=== PATIENT | male | born 1980 | race Caucasian/White ===

== ENCOUNTER 2020-01-18 16:48 | Emergency (ER) | payer OTHER, SELFPAY ==
--- NOTE | 2020-01-18 17:08 | ED_ITS ---
HPI - Alcohol General Chief Complaint: General Medical Stated Complaint: etoh Time Seen by Provider: 01/18/20 18:03 Source: patient and EMS Mode of arrival: EMS Limitations: no limitations History of Present Illness HPI narrative: 39-year-old male with past medical history of hepatitis-C, HIV, on Suboxone, alcohol abuse presents via EMS after being found at a [employer] bathroom passed out. States that he is withdrawing from Suboxone and has had multiple shots of whiskey. He is not suicidal or homicidal but he is asking for some help to get sober. He denies any physical complaints at this time. MD complaint: alcohol intoxication and desires rehab Last drink: Hours (ago) Chronic alcohol use: Yes Previous visits for alcohol intoxication: Yes Recent trauma: No Related Data Allergies Allergy/AdvReac Type Severity Reaction Status Date / Time No Known Allergies Allergy Unverified 11/06/19 19:36 [No Known Allergies*] Review of Systems Review of Systems: Constitutional: No Fever, No Chills ENT/Mouth: No sore throat, No Rhinorrhea Eyes: No Eye Pain, No Swelling, No Redness Cardiovascular: No Chest Pain, No SOB Respiratory: No Cough, No Sputum Gastrointestinal: No Nausea, No Vomiting, No Diarrhea, No abdominal Pain Genitourinary: No Dysuria, No Hematuria Musculoskeletal: No joint pain, No Myalgias, No Joint Swelling Skin: No Skin Lesions, No rash Neuro: No Weakness, No Numbness, No Loss of Consciousness, No Dizziness, No Headache Psych: No Anxiety, No Depression, No SI/HI/AH/VH Heme/Lymph: No Bruising, No Bleeding,No Lymphadenopathy Endocrine: No Polyuria, No Polydipsia Yes all other systems are reviewed and are negative PMFSH Past Medical History Source: old records reviewed Medical History (Updated 01/18/20 @ 17:12 by Cayla Perez NP) Pancreatitis Spontaneous tension pneumothorax Social History Social History Advance Directives: No Advance Directives Information Provided: Yes Physical Exam Vital Signs: Vital Signs: Last Vital Signs Temp 98.2 F 01/18/20 17:19 Pulse 82 01/18/20 17:19 Resp 18 01/18/20 17:19 BP 104/69 01/18/20 17:19 Pulse Ox 99 01/18/20 17:19 Body Mass Index 20.9 Appearance: Alert. Oriented X3. No acute distress. Eyes: Pupils equal, round and reactive to light. ENT: Pharynx normal. Neck: Normal inspection. Neck supple. CVS: Normal heart rate and rhythm. Pulses normal. Respiratory: No respiratory distress. Breath sounds normal. Abdomen: Soft and nontender. Skin: Skin warm and dry. Normal skin color. Normal skin turgor. Extremities: No lower extremity edema. Neuro: No motor deficit. No sensory deficit. Course Course Course Narrative: 39-year-old male with past medical history of hepatitis-C, HIV, substance abuse currently on Suboxone, alcohol abuse presents for acute alcohol intoxication and Suboxone withdrawal. He was found in his [employer] [place] [employer] bathroom passed out and brought to the emergency department via EMS. Currently asking for information for detox. He is not suicidal or homicidal, and review of past medical history shows that he has been here multiple times for similar concerns. Last visit was in 2019. 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 middle school football coach discussed plan with patient. [facility] Patient agrees with this plan. Patient decided that he would like to leave and go to detox in the morning on his own regard. Patient will be discharged home, he will call at [facility] in the morning. MDM - Alcohol MDM Narrative Medical decision making narrative: Substance abuse Differential Diagnosis Differential diagnosis: Likely alcohol dependence and alcohol intoxication Medical Records Attestation: I reviewed the patient's medical records. Lab Data Attestation: I reviewed the patient's lab results. Discharge Plan Discharge Clinical Impression: Alcohol abuse Patient Disposition: Home, Self-Care Instructions: Abuse of Alcohol (ED), Polysubstance Abuse (ED) Additional Instructions: please follow-up with [facility]> Thank you for choosing this emergency department for evaluation. Please follow-up with primary care physician as needed. Return to the emergency department for any new, concerning, or worsening symptoms. Interventions: ED Discharge Assessment Last Done: 01/18/20 19:25 Discharge Date/Time: 01/18/20 19:26
[2020-01-18 17:19] VITALS: BP 104/69; PULSE 82; RESP 18; TEMP 36.8; O2SAT 99; BMI 20.9
== END 2020-01-18 19:26 | disposition home or self-care (01) ==
PROVIDERS: Emergency Provider Emergency Medicine
DX: F10.10 Alcohol abuse, uncomplicated (principal); Z21 Asymptomatic human immunodeficiency virus [HIV] infection status; Z71.41 Alcohol abuse counseling and surveillance of alcoholic
CPT/HCPCS: 99283

== ENCOUNTER 2020-06-14 20:36 | Inpatient (IN) | payer MEDICAID, SELFPAY ==
--- NOTE | ~2020-06-14 | XR_ITS ---
EXAMINATION: XR CHEST CLINICAL INFORMATION: Fever COMPARISON: Chest radiograph 08/06/2018 TECHNIQUE: Frontal view of the chest was obtained in the supine position. The costophrenic angles are not included on the radiograph. FINDINGS: Some mild peribronchial thickening is present. No focal consolidations are seen. No other significant abnormality is noted involving the heart, lungs, mediastinum, bony thorax or soft tissues. XR/XR chest 1V IMPRESSION: Mild peribronchial thickening
--- NOTE | ~2020-06-14 | XR_ITS ---
EXAMINATION: XR ANKLE, RIGHT CLINICAL INFORMATION: Deep wound status post amputation COMPARISON: None TECHNIQUE: AP, lateral, and mortise views amputated distal stump. FINDINGS: Patient status post amputation of the foot. There is mild deformity distal ends of the tibia and fibula. Dystrophic calcifications are noted in the soft tissues. In the medial tibial corner, the cortex is not well seen and bony destruction secondary to osteomyelitis cannot be entirely excluded. XR/XR ankle RT 2V IMPRESSION: Question of osteomyelitis as described above. MRI may be helpful for further evaluation.
[2020-06-14 20:44] VITALS: BP 131/68; PULSE 80; RESP 18; TEMP 36.9; O2SAT 98; BMI 20.3
--- NOTE | 2020-06-14 21:03 | ED_ITS ---
HPI - Abdominal Pain General Chief Complaint: Abdominal Pain Stated Complaint: Nausea/Vomiting Time Seen by Provider: 06/14/20 20:56 Source: patient Mode of arrival: EMS Limitations: no limitations History of Present Illness HPI narrative: Patient's history of HIV hepatitis-C substance abuse heroin and cocaine and alcohol with history of alcohol syndrome with right leg till ankle since has a nonhealing ulcer at the stump with redness spreading to his lower [place] area for last few days was seen at [facility] 1 week ago and told him that he has infection but patient did want to get admitted . patient been vomiting for last 24 hours with diffuse abdominal pain no fever but feels chilly Related Data Allergies Allergy/AdvReac Type Severity Reaction Status Date / Time No Known Allergies Allergy Unverified 11/06/19 19:36 [No Known Allergies*] Review of Systems Review of Systems Constitutional : No Weight loss, No Fever, + Chills ENT/Mouth : No sore throat, No Rhinorrhea Eyes: No Eye Pain, No Swelling Cardiovascular : No Chest Pain, no palpitations Respiratory : No Cough, No Sputum, no shortness of breath Gastrointestinal : no Nausea, + Vomiting, No Diarrhea, No abdominal Pain, no black stools Genitourinary : No Dysuria, No Urinary Frequency Musculoskeletal : No joint pain, No Myalgias, No Joint Swelling Skin : No Skin Lesions, No rash Neuro : No Weakness, No Numbness, No Dizziness, No Headache Psych : No Anxiety/Panic, No Depression Heme/Lymph: No Bruising, No Lymphadenopathy Endocrine : No Polyuria, No Polydipsia All other systems reviewed and are negative Physical Exam Vital Signs: Vital Signs: Last Vital Signs Temp 98.2 F 06/14/20 23:46 Pulse 93 06/14/20 23:46 Resp 14 06/14/20 23:46 BP 101/85 06/14/20 23:46 Pulse Ox 95 06/14/20 23:46 Body Mass Index 20.3 Appearance: Alert. Oriented X3. In moderate distress. Vomiting actively Eyes: PERRLA, No Nystagmus ENT: Pharynx normal. Oral Mucosa moist Neck: Normal inspection. Neck supple. CVS: Normal heart rate and rhythm. Pulses normal. Respiratory: No respiratory distress. Equal air entry bilateral, no wheezing/rales/rhonchi Abdomen: Soft diffuse tenderness specially on epigastric area no rebound tenderness or guarding. Bowel sounds are present, no mass palpable, no CVA tenderness Skin: Skin warm and dry. Normal skin color. Normal skin turgor. Extremities: No lower extremity edema. No calf tenderness right lower extremity amputated at the ankle stump with 3 cm round nonhealing ulcer with granulation tissue at the base without significant 1st discharge, erythema all the way to the mid [place] on the right leg no subcutaneous crepitus normal sensation, left hand with loss of fingers Neuro: Oriented X 3. No motor deficit. No sensory deficit.No cerebellar signs , cranial nerves II-XII intact MDM - Abdominal Pain MDM Narrative Medical decision making narrative: Patient's substance abuse alcohol abuse came with chills and nonhealing ulcer of right stump x-ray showed slight erosion of the bone possible osteomyelitis with high risk of infection because of HIV and substance abuse will admit patient for IV antibiotic vancomycin and Zosyn pain is likely from withdrawal if patient felt better after IV Ativan Pepcid and Zofran Lab Data Attestation: I reviewed the patient's lab results. Result diagrams: 06/14/20 21:39 06/14/20 21:39 Labs: Lab Results 06/14/20 06/14/20 06/14/20 Range/Units 21:39 21:39 21:39 WBC 10.7 (4.8-10.8) X10*3/uL RBC 4.71 (4.60-5.80) X10*6/uL Hgb 14.6 (14.0-18.0) g/dl Hct 43.9 (42-52) % MCV 93.2 (80-98) fL MCH 31.0 (27.0-33.0) pg MCHC 33.3 (31.0-36.0) g/dl RDW 14.3 (11.0-16.0) % Plt Count 324 (160-400) X10*3/uL MPV 8.8 L (9.4-12.4) fL Immature Gran % (Auto) 0.9 H (0.0-0.4) % Neut % (Auto) 82.0 H (45-73) % Lymph % (Auto) 10.2 L (20-40) % [place] % (Auto) 6.3 (2-11) % Eos % (Auto) 0.3 (0-4) % Baso % (Auto) 0.3 (0-2) % Lymph # (Auto) 1.1 L (1.2-4.9) X10*3/uL [place] # (Auto) 0.7 (0.1-1.2) X10*3/uL Eos # (Auto) 0.0 (0.0-0.4) X10*3/uL Baso # (Auto) 0.0 (0.0-0.2) X10*3/uL Abs Immat Gran (auto) 0.10 H (0.00-0.03) X10*3/uL Absolute Neuts (auto) 8.8 H (2.0-8.3) X10*3/uL Absolute Nucleated RBC 0.000 (0.0-0.012) X10*3/uL Nucleated RBC % (auto) 0.0 (0.0-0.2) /100WBC PT 12.6 (10.8-13.0) SEC INR 1.1 (0.9-1.1) APTT 35.1 (24.1-38.0) SEC Sodium 137 (135-145) mmol/L Potassium 3.9 (3.3-5.1) mmol/L Chloride 92 L (96-108) mmol/L Carbon Dioxide 34 H (22-29) mmol/L Anion Gap 15 (12-20) BUN 4 L (9-16) mg/dL Creatinine 0.66 (0.5-1.4) mg/dL Estim Creat Clear Calc 144.6 Estimated GFR > 60 Random Glucose 111 (60-115) mg/dL Lactic Acid (0.5-2.0) mmol/L Calcium 9.7 (8.4-10.2) mg/dL Total Bilirubin 0.7 (0.0-1.0) mg/dL Direct Bilirubin 0.4 (0.0-0.5) mg/dL AST 29 (5-37) U/L ALT 16 (0-40) U/L Alkaline Phosphatase 123 H (39-117) U/L Total Protein 8.6 H (6.5-8.0) g/dL Albumin 3.5 (3.5-5.0) g/dL Lipase 9 (8-78) U/L Ethyl Alcohol mg/dL COVID-19 (PING) (Negative) COVID-19 Clin Com 06/14/20 06/14/20 06/14/20 Range/Units 21:39 21:49 21:49 WBC (4.8-10.8) X10*3/uL RBC (4.60-5.80) X10*6/uL Hgb (14.0-18.0) g/dl Hct (42-52) % MCV (80-98) fL MCH (27.0-33.0) pg MCHC (31.0-36.0) g/dl RDW (11.0-16.0) % Plt Count (160-400) X10*3/uL MPV (9.4-12.4) fL Immature Gran % (Auto) (0.0-0.4) % Neut % (Auto) (45-73) % Lymph % (Auto) (20-40) % [place] % (Auto) (2-11) % Eos % (Auto) (0-4) % Baso % (Auto) (0-2) % Lymph # (Auto) (1.2-4.9) X10*3/uL [place] # (Auto) (0.1-1.2) X10*3/uL Eos # (Auto) (0.0-0.4) X10*3/uL Baso # (Auto) (0.0-0.2) X10*3/uL Abs Immat Gran (auto) (0.00-0.03) X10*3/uL Absolute Neuts (auto) (2.0-8.3) X10*3/uL Absolute Nucleated RBC (0.0-0.012) X10*3/uL Nucleated RBC % (auto) (0.0-0.2) /100WBC PT (10.8-13.0) SEC INR (0.9-1.1) APTT (24.1-38.0) SEC Sodium (135-145) mmol/L Potassium (3.3-5.1) mmol/L Chloride (96-108) mmol/L Carbon Dioxide (22-29) mmol/L Anion Gap (12-20) BUN (9-16) mg/dL Creatinine (0.5-1.4) mg/dL Estim Creat Clear Calc Estimated GFR Random Glucose (60-115) mg/dL Lactic Acid 1.0 (0.5-2.0) mmol/L Calcium (8.4-10.2) mg/dL Total Bilirubin (0.0-1.0) mg/dL Direct Bilirubin (0.0-0.5) mg/dL AST (5-37) U/L ALT (0-40) U/L Alkaline Phosphatase (39-117) U/L Total Protein (6.5-8.0) g/dL Albumin (3.5-5.0) g/dL Lipase (8-78) U/L Ethyl Alcohol < 10 mg/dL COVID-19 (PING) Negative (Negative) COVID-19 Clin Com See Note Imaging Data X-ray Right ankle: Radiologist's impression: Ordering Physician: Nasim Piña MD Date of Service: 06/14/20 Procedure(s): XR ankle RT 2V Accession Number(s): [id number] cc: Nasim Piña MD~ EXAMINATION: XR ANKLE, RIGHT CLINICAL INFORMATION: Deep wound status post amputation COMPARISON: None TECHNIQUE: AP, lateral, and mortise views amputated distal stump. FINDINGS: Patient status post amputation of the foot. There is mild deformity distal ends of the tibia and fibula. Dystrophic calcifications are noted in the soft tissues. In the medial tibial corner, the cortex is not well seen and bony destruction secondary to osteomyelitis cannot be entirely excluded. XR/XR ankle RT 2V IMPRESSION: Question of osteomyelitis as described above. MRI may be helpful for further evaluation. Discharge Plan Discharge Clinical Impression: Osteomyelitis of ankle, right, acute, Substance abuse Patient Disposition: [facility] Past Medical History Medical History Amputation of right foot Pancreatitis Spontaneous tension pneumothorax Social History Social History Alcohol intake: current Alcohol type: hard liquor Smoking Status: Current every day smoker Use of substances other than those prescribed or required for medical reasons: Yes Substance Use Type: Heroin Substance Use Frequency: Chronic Longstanding Last Used Substance: Hours (ago) Advance Directives: No
[2020-06-14] MEDS: 0.9 % Sodium Chloride 1,000 ML 999 ML IVCONT (21:41)
[2020-06-14] MEDS: Famotidine/PF 20 MG/2 ML VIAL IVPUSH (21:41)
[2020-06-14] MEDS: ondansetron HCL 4 MG/2 ML VIAL IVPUSH (21:41)
[2020-06-14 21:46] LABS: MANUAL DIFF FLAG NO
[2020-06-14 21:47] LABS: Basophils Percent Auto 0.3 % (0-2); Eosinophils Percent Auto 0.3 % (0-4); Hematocrit 43.9 % (42-52); Hemoglobin 14.6 g/dl (14.0-18.0); Imm Gran Pct Auto 0.9 % (0.0-0.4); Lymphocytes Absolute Auto 1.1 X10*3/uL (1.2-4.9); Lymphocytes Percent Auto 10.2 % (20-40); Mean Corpuscular HGB Conc 33.3 g/dl (31.0-36.0); Mean Corpuscular Volume 93.2 fL (80-98); Mean Platelet Volume 8.8 fL (9.4-12.4); Monocytes Absolute Auto 0.7 X10*3/uL (0.1-1.2); Monocytes Percent Auto 6.3 % (2-11); Neutrophils Absolute Auto 8.8 X10*3/uL (2.0-8.3); Platelet Count 324 X10*3/uL (160-400); Red Blood Count 4.71 X10*6/uL (4.60-5.80); Red Cell Distribution Width 14.3 % (11.0-16.0); White Blood Count 10.7 X10*3/uL (4.8-10.8)
[2020-06-14] MEDS: Piperacillin Sodium/Tazobactam 3.375 GM in 0.9 % Sodium Chloride 50 ML IV (21:50)
[2020-06-14 21:53] LABS: INTERNATIONAL NORM RATIO 1.1 (0.9-1.1); Prothrombin Time 12.6 SEC (10.8-13.0)
[2020-06-14 21:55] LABS: Partial Thromboplastin Time 35.1 SEC (24.1-38.0)
[2020-06-14 22:09] LABS: Alanine Aminotransferase 16 U/L (0-40); Albumin Level 3.5 g/dL (3.5-5.0); Alkaline Phosphatase 123 U/L (39-117); Anion Gap 15 (12-20); Aspartate Amino Transferase 29 U/L (5-37); Bilirubin Direct 0.4 mg/dL (0.0-0.5); Bilirubin Total 0.7 mg/dL (0.0-1.0); Blood Urea Nitrogen 4 mg/dL (9-16); Calcium 9.7 mg/dL (8.4-10.2); Carbon Dioxide 34 mmol/L (22-29); Chloride 92 mmol/L (96-108); Creatinine Clr Calc Pharmacy 144.6; Estimated Glomerular Filt Rate > 60; Glucose Random 111 mg/dL (60-115); Lipase 9 U/L (8-78); Potassium 3.9 mmol/L (3.3-5.1); Sodium 137 mmol/L (135-145); Total Protein 8.6 g/dL (6.5-8.0)
[2020-06-14 22:13] LABS: COVID-19 Test Negative (Negative); IDNOW Serial# 9DD0AD1C
[2020-06-14 22:23] LABS: Ethanol < 10 mg/dL
--- NOTE | 2020-06-14 22:32 | PC.NURSE ---
PT BIBA, C/O DIFFUSE ABD PAIN W/ N/V SINCE THIS AM. ABD TENDER TO PALPATION ALL OVER, ACTIVELY VOMITING MULTIPLE TIMES UPON ARRIVAL. VSS. PT STS RECENTLY AT [facility] X1 WEEK AGO, STS DX W/ INFECTION IN BONE OF LEG, WAS TO BE ADMITTED TO HOSPITAL BUT LEFT AMA. PT BORN W/ NO R FOOT, HAS STUMP W/ ~1 X1 OPEN WOUND, REDNESS TO SKIN IN LE, WOUND/LEG WELL WRAPPED IN CLEAN DRY DRESSING. PT STS NORMALLY DRINKING ~20 DRINKS A DAY, LAST DRINK THIS AM D/T UNABLE TO KEEP ANYTHING TODAY. IV ESTABLISHED, LABS DRAWN, PT MEDICATED PER EMAR. PT AWARE/AGREEABLE TO PLAN OF CARE AND PENDING ADMISSION.
[2020-06-14 23:00] VITALS: BP 107/60; PULSE 83; RESP 20; TEMP 37.1; O2SAT 97
[2020-06-14] MEDS: vancomycin HCL 1,250 MG in 0.9 % Sodium Chloride 250 ML 166.67 MG IV (23:03)
[2020-06-14] MEDS: Magnesium Hydrox/Alum Hydrox 30 ML ORAL.SUSP PO (23:29)
[2020-06-14] MEDS: LORazepam 2 MG/ML VIAL 1 MG IVPUSH (23:29)
[2020-06-14 23:46] VITALS: BP 101/85; PULSE 93; RESP 14; TEMP 36.8; O2SAT 95
[2020-06-15] MEDS: 0.9 % Sodium Chloride 1,000 ML 999 ML IVCONT (00:13)
[2020-06-15 00:28] VITALS: BP 110/78; PULSE 88; RESP 14; TEMP 37; O2SAT 96
[2020-06-15] MEDS: Heparin Sodium,Porcine 5,000 UNIT/ML VIAL 5000 UNIT SUBCUT ×2 (01:34→09:18)
--- NOTE | 2020-06-15 02:24 | P.HPHOSP_ITS ---
History of Present Illness Date of Service: 06/15/20 Chief Complaint: Nausea/Vomiting Patient is a poor historian-most of the history obtained from the records and ER staff. 40-year-old male with a past medical history of HIV, hep C, alcohol abuse, anxiety, depression, polysubstance abuse including heroin, cocaine, history of alcohol syndrome-has right leg till ankle with a nonhealing ulcer on the stump presented to the hospital with a chief complaint of nausea and vomiting. Patient reported that over the past couple days he has been having nausea vomiting and abdominal discomfort. Denies any fever chills cough. Also mentioned that he has pain in his right leg and has noticed increased swelling and redness. Denies any numbness tingling. Patient mentions that he has been complaint with his home medications. Patient reported that his CD4 was checked couple months ago but does not remember how much. Reportedly patient recently went to [facility] but did not wanted to be admitted. Review of all other systems is negative except mentioned above ER course: ER team mentioned that patient right lower extremity x-ray showed findings consistent with osteomyelitis. Given antibiotics. Admitted for further management. [facility] Medical History (Updated 06/15/20 @ 16:49 by Roxanne Valdez MD) Amputation of right foot Cellulitis Open wound Pancreatitis Spontaneous tension pneumothorax Social History Alcohol intake: current Alcohol type: hard liquor Smoking Status: Current every day smoker Use of substances other than those prescribed or required for medical reasons: Yes Substance Use Type: Heroin Substance Use Frequency: Chronic Longstanding Last Used Substance: Hours (ago) Advance Directives: No Meds Allergies Allergy/AdvReac Type Severity Reaction Status Date / Time No Known Allergies Allergy Unverified 11/06/19 19:36 [No Known Allergies*] Active Medications: Current Medications Generic Name Dose Route Start Last Admin Trade Name Freq PRN Reason Stop Dose Admin Folic Acid 1 mg 06/15/20 09:00 Folic Acid 1 Mg Tablet PO 06/18/20 08:59 DAILY [facility] Heparin Sodium (Porcine) 5,000 unit 06/15/20 00:30 06/15/20 01:34 Heparin Sodium,Porcine 5,000 Unit/Ml Vial SUBCUT 5,000 unit Q8H MANUEL Administration Vancomycin HCl 1,250 mg/ 250 mls @ 166.667 mls/hr 06/14/20 23:00 06/15/20 01:35 Sodium Chloride IV Infused Q12H [facility] Infusion Piperacillin Sod/Tazobactam 50 mls @ 100 mls/hr 06/15/20 04:00 Sod 3.375 gm/ Sodium Chloride IV Q6H [facility] Lorazepam 1 mg 06/15/20 02:11 Lorazepam 1 Mg Tablet PO 06/19/20 02:10 Q4H PRN Breakthrough alcohol withdrawa Multivitamins 1 tab 06/15/20 09:00 B-Complex With Vitamin C Tablet PO DAILY [facility] Omeprazole 20 mg 06/15/20 06:30 Omeprazole 20 Mg Capsule. PO DAILY@0630 [facility] Pharmacy Consult 1 each 06/14/20 21:12 Consult Rx Vancomycin Dosing MISCELLANE DAILY PRN Consult order Pharmacy Consult 1 each 06/15/20 00:29 Consult Rx Vancomycin Dosing MISCELLANE DAILY PRN Consult order Senna 17.2 mg 06/15/20 00:28 Sennosides 8.6 Mg Tablet PO BEDTIME PRN Constipation Sodium Chloride 3 ml 06/15/20 08:00 0.9 % Sodium Chloride Flush 3 Ml Syringe IVFLUSH QSHIFT [facility] Thiamine HCl 100 mg 06/15/20 09:00 Thiamine Hcl 100 Mg Tablet PO 06/18/20 08:59 DAILY [facility] Home Medications Medication Instructions Recorded Confirmed Last Taken Type buspirone 1 tab PO BID 06/15/20 06/15/20 06/15/20 History bmukefj-yfq-bykjc-tenof alafen 1 tab PO DAILY 06/15/20 06/15/20 06/15/20 History [Genvoya] gabapentin 1 tab PO TID 06/15/20 06/15/20 06/15/20 History hydroxyzine pamoate 1 cap PO QID PRN 06/15/20 06/15/20 06/15/20 History Physical Exam Vital Signs and Narrative: Vital Signs: Last Vital Signs Temp 98.2 F 06/14/20 23:46 Pulse 93 06/14/20 23:46 Resp 14 06/14/20 23:46 BP 101/85 06/14/20 23:46 Pulse Ox 95 06/14/20 23:46 Body Mass Index 20.3 Gen: Appears be in no acute distress HEENT: NCAT, Moist mucosa. Pulmonary: Vesicular breath sounds, fair air entry CVS: Normal S1-S2 Abdomen: BS+, Soft, mildly tender diffusely, no guarding no rigidity. Extremities: Warm well perfused; right leg stump has nonhealing ulcer and vomiting erythema noted up to the proximal 3rd of the leg. Range of motion of the knee is maintained. Neuro: Alert and awake. Results Labs CBC and Chem 7: 06/14/20 21:39 06/14/20 21:39 Labs: Laboratory Results - last 24 hr 06/14/20 06/14/20 06/14/20 21:39 21:39 21:39 MCV 93.2 MCH 31.0 MCHC 33.3 RDW 14.3 Plt Count 324 MPV 8.8 L Immature Gran % (Auto) 0.9 H Neut % (Auto) 82.0 H Lymph % (Auto) 10.2 L [place] % (Auto) 6.3 Eos % (Auto) 0.3 Baso % (Auto) 0.3 Lymph # (Auto) 1.1 L [place] # (Auto) 0.7 Eos # (Auto) 0.0 Baso # (Auto) 0.0 Abs Immat Gran (auto) 0.10 H Absolute Neuts (auto) 8.8 H Absolute Nucleated RBC 0.000 Nucleated RBC % (auto) 0.0 PT 12.6 INR 1.1 APTT 35.1 Anion Gap 15 Estim Creat Clear Calc 144.6 Estimated GFR > 60 Random Glucose 111 Lactic Acid Calcium 9.7 Total Bilirubin 0.7 Direct Bilirubin 0.4 AST 29 ALT 16 Alkaline Phosphatase 123 H Total Protein 8.6 H Albumin 3.5 Lipase 9 Ethyl Alcohol COVID-19 (PING) COVID-19 Clin Com 06/14/20 06/14/20 06/14/20 21:39 21:49 21:49 MCV MCH MCHC RDW Plt Count MPV Immature Gran % (Auto) Neut % (Auto) Lymph % (Auto) [place] % (Auto) Eos % (Auto) Baso % (Auto) Lymph # (Auto) [place] # (Auto) Eos # (Auto) Baso # (Auto) Abs Immat Gran (auto) Absolute Neuts (auto) Absolute Nucleated RBC Nucleated RBC % (auto) PT INR APTT Anion Gap Estim Creat Clear Calc Estimated GFR Random Glucose Lactic Acid 1.0 Calcium Total Bilirubin Direct Bilirubin AST ALT Alkaline Phosphatase Total Protein Albumin Lipase Ethyl Alcohol < 10 COVID-19 (PING) Negative COVID-19 Clin Com See Note Imaging Radiologist's Impressions: Impressions Chest X-Ray 06/14/20 21:09 IMPRESSION: Mild peribronchial thickening Ankle X-Ray 06/14/20 21:13 IMPRESSION: Question of osteomyelitis as described above. MRI may be helpful for further evaluation. 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 Nausea/vomiting: Likely gastritis given alcohol use. Denies any blood in the vomitus. IV Pepcid b.i.d.. Lipase negative. Will also obtain CT abdomen. Right leg stump ulcer/osteomyelitis/cellulitis of the leg: Continue vanc and Zosyn. Id consult and General surgery consult for further recommendations. Alcohol abuse: Will monitor on CIWA protocol. Thiamine, folate, multivitamins. Polysubstance abuse: clay worker consult. History of HIV: Continue home medications. Patient reports he is on chronic Bactrim DVT prophylaxis: Subcu heparin Code status: Full code
[2020-06-15] MEDS: Piperacillin Sodium/Tazobactam 3.375 GM in 0.9 % Sodium Chloride 50 ML IV ×2 (04:54→10:20)
[2020-06-15] MEDS: 0.9 % Sodium Chloride 1,000 ML 100 ML IVCONT ×2 (04:55→15:35)
[2020-06-15 06:00] VITALS: BP 118/74; PULSE 82; RESP 18; O2SAT 97
[2020-06-15] MEDS: Metoclopramide HCl 10 MG/2 ML VIAL 5 MG IVPUSH (06:01)
[2020-06-15] MEDS: Acetaminophen 325 MG TABLET 650 MG PO (06:01)
[2020-06-15] MEDS: Omeprazole 20 MG CAPSULE.DR PO (06:02)
[2020-06-15] MEDS: LORazepam 1 MG TABLET PO ×2 (06:09→14:23)
[2020-06-15] MEDS: Gabapentin 600 MG TABLET PO ×3 (09:19→21:42)
[2020-06-15] MEDS: Thiamine HCL 100 MG TABLET PO (09:19)
[2020-06-15] MEDS: Folic Acid 1 MG TABLET PO (09:19)
[2020-06-15] MEDS: busPIRone HCl 10 MG TABLET PO (09:19)
[2020-06-15] MEDS: vancomycin HCL 1,250 MG in 0.9 % Sodium Chloride 250 ML 166.67 MG IV (11:00)
--- NOTE | 2020-06-15 14:06 | MHC.CM.PN ---
Attempted to meet with patient in regards to discharge planning. Nursing care currently being provided. Attempted to speak with patient's sister/HCP, Pebbles via telephone at [phone]. Left a message requesting a return telephone call. Case Management will attempt to meet again. Continue to monitor for d/c needs.
--- NOTE | 2020-06-15 14:30 | MHC.RECOVRN ---
40 year old male presented to [facility] ED on 06/14 via EMS due to diffuse abd pain w n/v since this am. 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 Pt subsequently admitted for osteomyelitis.? T/w met with pt in ED 15 after noting pt informed ED staff of recent substance use. Pt reports heroin use, IV, 2-3 bundles daily, last use 2 days ago; alcohol use, 20 nips daily, last use yesterday. Pt denies other substance use. Pt currently reports 10 pain r/t possible osteo as well as withdrawal symptoms. COWS 16. CIWA 11.? Pt interested in methadone for opiate withdrawal symptoms. Case discussed with pts RN and Lyndsey Jay APRN. Methadone 20 mg ordered.?Will continue to follow.
--- NOTE | 2020-06-15 14:32 | PM.CNGS ---
History of Present Illness Consult details Consult date: 06/15/20 Narrative: 40-year-old male with multiple medical problems including HIV and alcohol abuse, referred because of a question of osteomyelitis. 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 He came in last night because of nausea and vomiting as well as pain on the stump on the right leg. He said he has had a wound on this area for a long time now. His recent vomiting was deemed to be secondary to his ETOH intake with likely gastritis. He denied any fever at home. He says he used to wear prosthesis for the right lower leg deformity but states that he has not used this since January 2020. He says that he normally does his medical care in [place] but had moved here recently. Review of Systems Constitutional: Constitutional: Denies chills and Denies fever(s) Cardiovascular: Cardiovascular: Denies chest pain at rest Respiratory: Respiratory: Denies cough Gastrointestinal: Gastrointestinal: Reports nausea Genitourinary: Genitourinary: Reports difficulty urinating Neurologic: Denies Sensory deficit (Neuro) Psychiatric: Psychiatric: Reports anxiety and Reports depression [facility] Past Medical History Medical History (Updated 06/15/20 @ 16:49 by Roxanne Valdez MD) Amputation of right foot Cellulitis Open wound Pancreatitis Spontaneous tension pneumothorax Social History Social History Household Members: None Housing: Homeless Alcohol intake: current Alcohol type: hard liquor Smoking Status: Current every day smoker Use of substances other than those prescribed or required for medical reasons: Yes Substance Use Type: Heroin Substance Use Frequency: Daily Last Used Substance: Hours (ago) Currently Displaying Signs/Symptoms of Drug Intoxication Withdrawal: No Have you been hit, kicked, punched, or otherwise hurt by someone within the past year? If so, by whom?: No Do you feel safe in your current relationship?: No Current Relationship Is there a partner from a previous relationship who is making you feel unsafe now?: No Are you made to feel afraid or neglected: No Advance Directives: No Do you have thoughts of harming others: None Do you have a plan to hurt others: No Plan Recently lost weight without trying: No service: No Current occupational status: unemployed Meds Allergies Allergy/AdvReac Type Severity Reaction Status Date / Time No Known Allergies Allergy Unverified 11/06/19 19:36 [No Known Allergies*] Active Medications: Current Medications Generic Name Dose Route Start Last Admin Trade Name Freq PRN Reason Stop Dose Admin Bictegravir/Emtricitabine/Tenofovir 1 tab 06/15/20 11:45 06/15/20 14:16 Bictegrav/Emtricit/Tenofov Ala 1 Tab Tablet PO 1 tab DAILY [facility]EL Administration Buspirone HCl 10 mg 06/15/20 09:00 06/15/20 09:19 Buspirone Hcl 10 Mg Tablet PO 10 mg DAILY [facility] Administration Folic Acid 1 mg 06/15/20 09:00 06/15/20 09:19 Folic Acid 1 Mg Tablet PO 06/18/20 08:59 1 mg DAILY [facility] Administration Gabapentin 600 mg 06/15/20 09:00 06/15/20 14:23 Gabapentin 600 Mg Tablet PO 600 mg TID [facility]UEL Administration Heparin Sodium (Porcine) 5,000 unit 06/15/20 00:30 06/15/20 09:18 Heparin Sodium,Porcine 5,000 Unit/Ml Vial SUBCUT 5,000 unit Q8H [facility] Administration Hydroxyzine HCl 25 mg 06/15/20 04:40 Hydroxyzine Hcl 25 Mg Tablet PO Q6H PRN anxiety/restlessness Vancomycin HCl 1,250 mg/ 250 mls @ 166.667 mls/hr 06/14/20 23:00 06/15/20 12:47 Sodium Chloride IV Infused Q12H MANUEL Infusion Piperacillin Sod/Tazobactam 50 mls @ 100 mls/hr 06/15/20 04:00 06/15/20 10:50 Sod 3.375 gm/ Sodium Chloride IV Infused Q6H [facility]UEL Infusion Sodium Chloride 1,000 mls @ 100 mls/hr 06/15/20 02:30 06/15/20 04:55 Ns IVCONT 100 mls/hr .Q10H [facility] Administration Lorazepam 1 mg 06/15/20 02:11 06/15/20 14:23 Lorazepam 1 Mg Tablet PO 06/19/20 02:10 1 mg Q4H PRN Administration Breakthrough alcohol withdrawa Methadone HCl 20 mg 06/15/20 14:15 Methadone Hcl 1 Mg/0.1 Ml Oral.Conc PO DAILY [facility] Multivitamins 1 tab 06/15/20 09:00 06/15/20 09:19 B-Complex With Vitamin C Tablet PO 1 tab DAILY [facility] Administration Non-Formulary Medication 1 tab 06/15/20 09:00 Genvoya PO DAILY [facility] Omeprazole 20 mg 06/15/20 06:30 06/15/20 06:02 Omeprazole 20 Mg Capsule. PO 20 mg DAILY@0630 [facility] Administration Pharmacy Consult 1 each 06/14/20 21:12 Consult Rx Vancomycin Dosing MISCELLANE DAILY PRN Consult order Pharmacy Consult 1 each 06/15/20 00:29 Consult Rx Vancomycin Dosing MISCELLANE DAILY PRN Consult order Senna 17.2 mg 06/15/20 00:28 Sennosides 8.6 Mg Tablet PO BEDTIME PRN Constipation Sodium Chloride 3 ml 06/15/20 08:00 06/15/20 09:20 0.9 % Sodium Chloride Flush 3 Ml Syringe IVFLUSH Not Given QSHIFT [facility] Thiamine HCl 100 mg 06/15/20 09:00 06/15/20 09:19 Thiamine Hcl 100 Mg Tablet PO 06/18/20 08:59 100 mg DAILY [facility] Administration Home Medications Medication Instructions Recorded Confirmed Last Taken Type buspirone 1 tab PO BID 06/15/20 06/15/20 06/15/20 History tyrjmqf-dir-nyuyj-tenof alafen 1 tab PO DAILY 06/15/20 06/15/20 06/15/20 History [Genvoya] gabapentin 1 tab PO TID 06/15/20 06/15/20 06/15/20 History hydroxyzine pamoate 1 cap PO QID PRN 06/15/20 06/15/20 06/15/20 History Physical Exam Vital Signs: Vital Signs: Last Vital Signs Temp 98.6 F 06/15/20 00:28 Pulse 82 06/15/20 06:00 Resp 18 06/15/20 06:00 BP 118/74 06/15/20 06:00 Pulse Ox 97 06/15/20 06:00 Body Mass Index 20.3 Laboratory Results - last 24 hr 06/14/20 06/14/20 06/14/20 21:39 21:39 21:39 WBC 10.7 RBC 4.71 Hgb 14.6 Hct 43.9 MCV 93.2 MCH 31.0 MCHC 33.3 RDW 14.3 Plt Count 324 MPV 8.8 L Immature Gran % (A uto) 0.9 H Neut % (Auto) 82.0 H Lymph % (Auto) 10.2 L [place] % (Auto) 6.3 Eos % (Auto) 0.3 Baso % (Auto) 0.3 Lymph # (Auto) 1.1 L [place] # (Auto) 0.7 Eos # (Auto) 0.0 Baso # (Auto) 0.0 Abs Immat Gran (au to) 0.10 H Absolute Neuts (au to) 8.8 H Absolute Nucleated RBC 0.000 Nucleated RBC % (a uto) 0.0 PT 12.6 INR 1.1 APTT 35.1 Sodium 137 Potassium 3.9 Chloride 92 L Carbon Dioxide 34 H Anion Gap 15 BUN 4 L Creatinine 0.66 Estim Creat Clear Calc 144.6 Estimated GFR > 60 Random Glucose 111 Lactic Acid Calcium 9.7 Total Bilirubin 0.7 Direct Bilirubin 0.4 AST 29 ALT 16 Alkaline Phosphata se 123 H Total Protein 8.6 H Albumin 3.5 Lipase 9 Ethyl Alcohol COVID-19 (PING) COVID-19 CoNarrative 06/14/20 06/14/20 06/14/20 21:39 21:49 21:49 WBC RBC Hgb Hct MCV MCH MCHC RDW Plt Count MPV Immature Gran % (A uto) Neut % (Auto) Lymph % (Auto) [place] % (Auto) Eos % (Auto) Baso % (Auto) Lymph # (Auto) [place] # (Auto) Eos # (Auto) Baso # (Auto) Abs Immat Gran (au to) Absolute Neuts (au to) Absolute Nucleated RBC Nucleated RBC % (a uto) PT INR APTT Sodium Potassium Chloride Carbon Dioxide Anion Gap BUN Creatinine Estim Creat Clear Calc Estimated GFR Random Glucose Lactic Acid 1.0 Calcium Total Bilirubin Direct Bilirubin AST ALT Alkaline Phosphata se Total Protein Albumin Lipase Ethyl Alcohol < 10 COVID-19 (PING) Negative COVID-19 Clin Com See Note Const: General: comfortable and no acute distress Resp: Effort & Inspection: normal respiratory effort Cardio: Rhythm: regular rhythm GI: Palpation (GI): Soft to palpation, not firm and nontender Neuro: Sensory Exam: No Sensory deficit (Neuro) Extrem: Other: Right leg stump, congenital, near the level of the ankle; note of skin breakdown, circular in shape, at the stump, about 2.5 cm in diameter, no obvious pus, no necrotic tissue; some redness on the right lower leg usually Results Labs Result diagrams: 06/14/20 21:39 06/14/20 21:39 Labs: Abnormal lab results 06/14/20 06/14/20 Range/Units 21:39 21:39 MPV 8.8 L (9.4-12.4) fL Immature Gran % (Auto) 0.9 H (0.0-0.4) % Neut % (Auto) 82.0 H (45-73) % Lymph % (Auto) 10.2 L (20-40) % Lymph # (Auto) 1.1 L (1.2-4.9) X10*3/uL Abs Immat Gran (auto) 0.10 H (0.00-0.03) X10*3/uL Absolute Neuts (auto) 8.8 H (2.0-8.3) X10*3/uL Chloride 92 L (96-108) mmol/L Carbon Dioxide 34 H (22-29) mmol/L BUN 4 L (9-16) mg/dL Alkaline Phosphatase 123 H (39-117) U/L Total Protein 8.6 H (6.5-8.0) g/dL Short CBC 06/14/20 Range/Units 21:39 WBC 10.7 (4.8-10.8) X10*3/uL Hgb 14.6 (14.0-18.0) g/dl Hct 43.9 (42-52) % Plt Count 324 (160-400) X10*3/uL BMP 06/14/20 21:39 Sodium 137 Potassium 3.9 Chloride 92 L Carbon Dioxide 34 H BUN 4 L Creatinine 0.66 Calcium 9.7 Liver Function 06/14/20 Range/Units 21:39 Total Bilirubin 0.7 (0.0-1.0) mg/dL Direct Bilirubin 0.4 (0.0-0.5) mg/dL AST 29 (5-37) U/L ALT 16 (0-40) U/L Alkaline Phosphatase 123 H (39-117) U/L Albumin 3.5 (3.5-5.0) g/dL All other labs normal. Imaging Additional studies: X-ray of the leg reviewed Assessment and Plan (1) Open wound: Status: Acute He has an open wound on the stump of his right leg as described above. This may have been secondary to pressure from a previous prostheses. The patient is not a very good historian however. The x-ray shows nonvisualization the cortex so osteomyelitis could not be ruled out. An MRI therefore was recommended. We will await for this and decide on the plan of care for him. In the meantime, dry dressings may have be applied to the open wound. It does not appear that he requires debridement at this time. He does state that he normally does his healthcare in [place] and stated that may return there if he requires any form of long-term treatment for his medical issues.
--- NOTE | 2020-06-15 14:53 | W.PM.IDCN ---
History of Present Illness Data of Consult Service Date: 06/15/20 Requesting physician: Roxanne Valdez Primary Care Provider: Unknown Physician HPI Reason for consult: cellulitis He presents with left leg stump redness for 3 days He went to [facility] and left by report one day ago He has nausea and vomiting Review of Systems Review of Systems: Yes all other systems are reviewed and are negative PMFSH Past Medical History Medical History (Updated 06/15/20 @ 14:57 by Adilia Burnham MD) Amputation of right foot Cellulitis Open wound Pancreatitis Spontaneous tension pneumothorax Family History Family history: reviewed and not pertinent Social History Social History Alcohol intake: current Alcohol type: hard liquor Smoking Status: Current every day smoker Use of substances other than those prescribed or required for medical reasons: Yes Substance Use Type: Heroin Substance Use Frequency: Chronic Longstanding Last Used Substance: Hours (ago) Advance Directives: No Meds Allergies Allergy/AdvReac Type Severity Reaction Status Date / Time No Known Allergies Allergy Unverified 11/06/19 19:36 [No Known Allergies*] Active Medications: Current Medications Generic Name Dose Route Start Last Admin Trade Name Freq PRN Reason Stop Dose Admin Bictegravir/Emtricitabine/Tenofovir 1 tab 06/15/20 11:45 06/15/20 14:16 Bictegrav/Emtricit/Tenofov Ala 1 Tab Tablet PO 1 tab DAILY [facility] Administration Buspirone HCl 10 mg 06/15/20 09:00 06/15/20 09:19 Buspirone Hcl 10 Mg Tablet PO 10 mg DAILY [facility] Administration Folic Acid 1 mg 06/15/20 09:00 06/15/20 09:19 Folic Acid 1 Mg Tablet PO 06/18/20 08:59 1 mg DAILY [facility] Administration Gabapentin 600 mg 06/15/20 09:00 06/15/20 14:23 Gabapentin 600 Mg Tablet PO 600 mg TID MANUEL Administration Heparin Sodium (Porcine) 5,000 unit 06/15/20 00:30 06/15/20 09:18 Heparin Sodium,Porcine 5,000 Unit/Ml Vial SUBCUT 5,000 unit Q8H [facility] Administration Hydroxyzine HCl 25 mg 06/15/20 04:40 Hydroxyzine Hcl 25 Mg Tablet PO Q6H PRN anxiety/restlessness Vancomycin HCl 1,250 mg/ 250 mls @ 166.667 mls/hr 06/14/20 23:00 06/15/20 12:47 Sodium Chloride IV Infused Q12H [facility] Infusion Piperacillin Sod/Tazobactam 50 mls @ 100 mls/hr 06/15/20 04:00 06/15/20 10:50 Sod 3.375 gm/ Sodium Chloride IV Infused Q6H [facility] Infusion Sodium Chloride 1,000 mls @ 100 mls/hr 06/15/20 02:30 06/15/20 04:55 Ns IVCONT 100 mls/hr .Q10H [facility] Administration Lorazepam 1 mg 06/15/20 02:11 06/15/20 14:23 Lorazepam 1 Mg Tablet PO 06/19/20 02:10 1 mg Q4H PRN Administration Breakthrough alcohol withdrawa Methadone HCl 20 mg 06/15/20 14:15 Methadone Hcl 1 Mg/0.1 Ml Oral.Conc PO DAILY [facility] Multivitamins 1 tab 06/15/20 09:00 06/15/20 09:19 B-Complex With Vitamin C Tablet PO 1 tab DAILY [facility] Administration Non-Formulary Medication 1 tab 06/15/20 09:00 Genvoya PO DAILY [facility] Omeprazole 20 mg 06/15/20 06:30 06/15/20 06:02 Omeprazole 20 Mg Capsule. PO 20 mg DAILY@0630 [facility] Administration Pharmacy Consult 1 each 06/14/20 21:12 Consult Rx Vancomycin Dosing MISCELLANE DAILY PRN Consult order Pharmacy Consult 1 each 06/15/20 00:29 Consult Rx Vancomycin Dosing MISCELLANE DAILY PRN Consult order Senna 17.2 mg 06/15/20 00:28 Sennosides 8.6 Mg Tablet PO BEDTIME PRN Constipation Sodium Chloride 3 ml 06/15/20 08:00 06/15/20 09:20 0.9 % Sodium Chloride Flush 3 Ml Syringe IVFLUSH Not Given QSHIFT [facility] Thiamine HCl 100 mg 06/15/20 09:00 06/15/20 09:19 Thiamine Hcl 100 Mg Tablet PO 06/18/20 08:59 100 mg DAILY [facility] Administration Home Medications Medication Instructions Recorded Confirmed Last Taken Type buspirone 1 tab PO BID 06/15/20 06/15/20 06/15/20 History smramxj-cfe-egmud-tenof alafen 1 tab PO DAILY 06/15/20 06/15/20 06/15/20 History [Genvoya] gabapentin 1 tab PO TID 06/15/20 06/15/20 06/15/20 History hydroxyzine pamoate 1 cap PO QID PRN 06/15/20 06/15/20 06/15/20 History Physical Exam Vital Signs: Vital Signs: Last Vital Signs Temp 98.6 F 06/15/20 00:28 Pulse 82 06/15/20 06:00 Resp 18 06/15/20 06:00 BP 118/74 06/15/20 06:00 Pulse Ox 97 06/15/20 06:00 Body Mass Index 20.3 Const: General: cooperative Orientation/consciousness: patient oriented x3 HENMT: Head: Yes normal to inspection Mouth: Normal oral and palatal mucosa present Eyes: General: appearance normal, both eyes and all related structures Resp: Effort & Inspection: normal respiratory effort Cardio: Rate: regular rate Rhythm: regular rhythm GI: Palpation (GI): Soft to palpation and nontender Skin: Other: hot red area left stump Neuro: General: patient oriented x3 Results Labs CBC & Chem 7: 06/14/20 21:39 06/14/20 21:39 Labs: Short CBC 06/14/20 Range/Units 21:39 WBC 10.7 (4.8-10.8) X10*3/uL Hgb 14.6 (14.0-18.0) g/dl Hct 43.9 (42-52) % Plt Count 324 (160-400) X10*3/uL BMP 06/14/20 21:39 Sodium 137 Potassium 3.9 Chloride 92 L Carbon Dioxide 34 H BUN 4 L Creatinine 0.66 Calcium 9.7 Liver Function 06/14/20 Range/Units 21:39 Total Bilirubin 0.7 (0.0-1.0) mg/dL Direct Bilirubin 0.4 (0.0-0.5) mg/dL AST 29 (5-37) U/L ALT 16 (0-40) U/L Alkaline Phosphatase 123 H (39-117) U/L Albumin 3.5 (3.5-5.0) g/dL Assessment and Plan (1) Hepatitis C: Status: Acute (2) HIV (human immunodeficiency virus infection): Status: Acute (3) Cellulitis: Problem details: He has acute red cellulitis Status: Acute Clindamycin or Linezolid would give likely 3-4 days then po
[2020-06-15 16:16] VITALS: BP 113/69; PULSE 73; RESP 16; TEMP 37.2; O2SAT 98
[2020-06-15] MEDS: Clindamycin Phosphate/D5W 900 MG/50 ML PIGGYBACK 50 MG IV (16:16)
--- NOTE | 2020-06-15 16:45 | P.PNIM_ITS ---
Subjective Subjective Date of Service: 06/15/20 Interval History: Reports he had MRI and labs at [facility] last week but did not want to stay in the hospital Very tired C/o nausea Physical Exam Vital Signs: Vital Signs: Last Vital Signs Temp 99 F 06/15/20 16:16 Pulse 73 06/15/20 16:16 Resp 16 06/15/20 16:16 BP 113/69 06/15/20 16:16 Pulse Ox 98 06/15/20 16:16 Body Mass Index 20.3 Gen: tired but in no acute distress HEENT: sclera anicteric, moist mucus membranes Neck: supple Lungs: clear to auscultation bilaterally Heart: regular rate and rhythm, no murmurs Abd: soft, non-tender, non-distended Ext: R foot stump (congenital?) with quarter-sized ulcer with surrounding erythema and warmth Skin: warm/well-perfused Neuro: alert and oriented x3, no focal findings Psych: appropriate affect Objective Data Current Medications Generic Name Dose Route Start Last Admin Trade Name Alexq PRN Reason Stop Dose Admin Bictegravir/Emtricitabine/Tenofovir 1 tab 06/15/20 11:45 06/15/20 14:16 Bictegrav/Emtricit/Tenofov Ala 1 Tab Tablet PO 1 tab DAILY [facility] Administration Buspirone HCl 10 mg 06/15/20 09:00 06/15/20 09:19 Buspirone Hcl 10 Mg Tablet PO 10 mg DAILY [facility] Administration Folic Acid 1 mg 06/15/20 09:00 06/15/20 09:19 Folic Acid 1 Mg Tablet PO 06/18/20 08:59 1 mg DAILY [facility] Administration Gabapentin 600 mg 06/15/20 09:00 06/15/20 14:23 Gabapentin 600 Mg Tablet PO 600 mg TID [facility] Administration Heparin Sodium (Porcine) 5,000 unit 06/15/20 00:30 06/15/20 16:17 Heparin Sodium,Porcine 5,000 Unit/Ml Vial SUBCUT Not Given Q8H [facility] Hydroxyzine HCl 25 mg 06/15/20 04:40 Hydroxyzine Hcl 25 Mg Tablet PO Q6H PRN anxiety/restlessness Sodium Chloride 1,000 mls @ 100 mls/hr 06/15/20 02:30 06/15/20 15:35 Ns IVCONT 100 mls/hr .Q10H [facility] Administration Clindamycin Phosphate 900 mg in 50 mls @ 50 mls/hr 06/15/20 16:00 06/15/20 16:16 Cleocin IV 50 mls/hr Q8H [facility] Administration Lorazepam 1 mg 06/15/20 02:11 06/15/20 14:23 Lorazepam 1 Mg Tablet PO 06/19/20 02:10 1 mg Q4H PRN Administration Breakthrough alcohol withdrawa Methadone HCl 20 mg 06/15/20 14:15 Methadone Hcl 1 Mg/0.1 Ml Oral.Conc PO DAILY [facility] Multivitamins 1 tab 06/15/20 09:00 06/15/20 09:19 B-Complex With Vitamin C Tablet PO 1 tab DAILY [facility] Administration Non-Formulary Medication 1 tab 06/15/20 09:00 Genvoya PO DAILY [facility] Omeprazole 20 mg 06/15/20 06:30 06/15/20 06:02 Omeprazole 20 Mg Capsule. PO 20 mg DAILY@0630 [facility] Administration Pharmacy Consult 1 each 06/14/20 21:12 Consult Rx Vancomycin Dosing MISCELLANE DAILY PRN Consult order Pharmacy Consult 1 each 06/15/20 00:29 Consult Rx Vancomycin Dosing MISCELLANE DAILY PRN Consult order Senna 17.2 mg 06/15/20 00:28 Sennosides 8.6 Mg Tablet PO BEDTIME PRN Constipation Sodium Chloride 3 ml 06/15/20 08:00 06/15/20 09:20 0.9 % Sodium Chloride Flush 3 Ml Syringe IVFLUSH Not Given QSHIFT [facility] Thiamine HCl 100 mg 06/15/20 09:00 06/15/20 09:19 Thiamine Hcl 100 Mg Tablet PO 06/18/20 08:59 100 mg DAILY [facility] Administration Labs CBC & Chem 7: 06/14/20 21:39 06/14/20 21:39 Assessment and Plan (1) Cellulitis: Status: Acute Assessment and Plan: hospital d#1 40yo M with HIV on HAART, HCV, EtOH abuse, opioid abuse, alcohol syndrome with chronic R leg stump presenting with N/V and found to have R leg stump ulcer with cellulitis and concern for underlying osteomyelitis # R leg stump infection - pip/alfred + vanc d#1, ID/surg consults. will request MRI + lab results from [facility]. # N/V - suspect EtOH gastritis but CT pending. on IV H2RA # HIV - pt reports he is on Biktarvy, not Genvoya- will continue - reports he had labs last week at [facility]- will request records of CD4, viral load # EtOH abuse - [facility] protocol, thiamine, folate, multivitamins # opioid use disorder - Addiction medicine consulted, started on methadone # cocaine abuse - CARE Team consult # tobacco abuse - NRT # VTE ppx - UF
--- NOTE | 2020-06-15 17:41 | PM.EVENT ---
Event Note Date of Service: 06/15/20 Event Note: Addiction note: Patient currently medically admitted with wound on right limb, ? osteo HIV and Hepatitis C Reporting daily opioid use, seen by Recovery support RN--experiencing acute withdrawal sx (COWS 16) Pt denies any current MAT, hx of both methadone and buprenorphine Declining buprenorphine at this time Plan: -20mg methadone to treat acute opioid withdrawal sx -If necessary, can have additional 10mg this evening (to treat withdrawal sx) -Will follow up in AM for full consult evaluation -20mg QD order in place for now
--- NOTE | 2020-06-15 18:05 | PC.NURSE ---
AT 1620 JUST AFTER INITIATION OF ABX PT CO PAIN TO RUE, REQUESTED INFUSION BE PAUSED. IV INSERTION SITE SKIN [employer] INTACT, NO REDNESS/SWELLING.
[2020-06-15] MEDS: hydrOXYzine HCL 25 MG TABLET PO (19:09)
[2020-06-15] MEDS: 0.9 % Sodium Chloride Flush 3 ML SYRINGE IVFLUSH (20:38)
--- NOTE | 2020-06-15 20:38 | MHC.CM.PN ---
CM met with pt. Sister and her boyfriend present. Pt is somewhat angry. Stating that he wants his infection fixed, but doesn't want to hear about all that case management stuff. States he already knows what he needs to do. 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 Pt has poly-substance misuse disorder (cocaine, heroin and alcohol), his HIV positive and Hep C positive. Pt understands that he may have osteomyelitis and may need half-way antibiotics. Pt states he would like to get his apartment situation figured out, so he can have his treatments at home. CM explained to pt that because of his heroin misuse, he cannot have a PICC line at home for treatment. Explained that he would need to go to a facility for treatment. Pt's sister verified that this is true and he will not have a PICC line to go home. Pt started to speak with CM in an agitated manner about his addiction and not wanting to go to any rehab. States those places are all shit . States, I'm not going [place] [facility] [place] where they have people yelling all the time . States he has been through this before. Pt kicked his sister and boyfriend out of the room at this point.Pt rambling a bit. CM explained that he is in control of his decisions. Pt was able to calm down and speak with CM about his services. Pt is homeless. Pt is working with [facility] ([phone])- which provides all types of support services for those with HIV, including housing, of which he is waiting for a voucher. Pt has a PCP-Dr. Livia Joseph ([phone]) who works for [employer]. Pt feels like Dr. Joseph knows him and has been providing care for him, but wants him to have housing first, then addiction treatment and then care of his stump. Pt was seen by Lyndsey Jay, addiction services and methadone was ordered. D/C plan is pending diagnosis, treatment plan, and pt desires. Transportation pending disposition. CM to follow for d/c needs
--- NOTE | 2020-06-15 21:00 | PC.NURSE ---
PT AGAIN REFUSING IV INFUSION, STATES IT HURTS , NO INFILTRATION NOTED AT IV SITE, INFUSION PAUSED PER PT REQUEST.
[2020-06-15] MEDS: Nicotine 21 MG PATCH.TD24 TRANSDERMA (21:45)
[2020-06-15 21:47] VITALS: BP 123/72; PULSE 77; RESP 19; TEMP 36.5; O2SAT 100
[2020-06-16] MEDS: LORazepam 1 MG TABLET PO ×2 (00:29→05:37)
[2020-06-16] MEDS: Omeprazole 20 MG CAPSULE.DR PO (05:38)
[2020-06-16] MEDS: oxyCODONE HCl Immed Release 5 MG TABLET PO ×2 (05:38→10:57)
--- NOTE | 2020-06-16 05:57 | PC.NURSE ---
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 Security was called twice on two separate occasions because pt smoked cigarette in room also while wearing a nicotine patch. Nursing group supervisor yard notified.
[2020-06-16 07:10] VITALS: BP 129/81; PULSE 92; RESP 18; TEMP 36.9; O2SAT 98
[2020-06-16] MEDS: Gabapentin 600 MG TABLET PO (08:37)
[2020-06-16] MEDS: busPIRone HCl 10 MG TABLET PO (08:37)
[2020-06-16] MEDS: Thiamine HCL 100 MG TABLET PO (08:37)
[2020-06-16] MEDS: Folic Acid 1 MG TABLET PO (08:37)
[2020-06-16] MEDS: Nicotine 21 MG PATCH.TD24 TRANSDERMA (08:38)
--- NOTE | 2020-06-16 09:00 | MHC.RECOVRN ---
T/w met with pt to f/u regarding pain and withdrawal symptoms. Pt appears restless and diaphoretic. Pt states I need more than the 20 mg of methadone. Pt continued to state I don't want to go to a halfway, I just need to get my housing figured out. I just need a couple doses of antibiotics and to leave by Sunday. T/w educated patient regarding increasing methadone dose in this circumstance and informed pt MD and Lyndsey Jay APRN would be made aware of pts continued pain and withdrawal symptoms. Room has odor of cigarettes. Pt denies having cigarettes/cooky packer/smoking in room. Case discussed with Dr. Valdez who will speak with pt regarding plan. Case also discussed with Lyndsey Jay APRN. Will continue to follow.
[2020-06-16] MEDS: 0.9 % Sodium Chloride Flush 3 ML SYRINGE IVFLUSH (09:19)
[2020-06-16 10:05] LABS: MANUAL DIFF FLAG NO
--- NOTE | 2020-06-16 10:07 | PM.PNGS ---
Subjective Subjective Date of Service: 06/16/20 Interval history: Says he feels well except for pain on the leg Asking for pain meds No fever Physical Exam Vital Signs: Vital Signs: Last Vital Signs Temp 98.4 F 06/16/20 07:10 Pulse 92 06/16/20 07:10 Resp 18 06/16/20 07:10 BP 129/81 06/16/20 07:10 Pulse Ox 98 06/16/20 07:10 Body Mass Index 20.3 Const: General: comfortable and no acute distress Resp: Effort & Inspection: normal respiratory effort Cardio: Rhythm: regular rhythm Extrem: Other: Open wound, superficial, on the stump of his right leg, no pus; he has some redness on his right leg Progress Note: A&P Assessment and plan (1) Open wound: Status: Acute Assessment and Plan: He does not appear that he requires any debridement at this time. There is no known note of any necrotic tissue on the area. I explained to him that he needs to avoid putting pressure on this area to allow this to heal. He may be unable to wear any prosthesis still is completely heals. Has been seen by ID and clindamycin or linezolido has been recommended. Fall Risk Details Current Medications: Current Medications Generic Name Dose Route Start Last Admin Trade Name Freq PRN Reason Stop Dose Admin Bictegravir/Emtricitabine/Tenofovir 1 tab 06/15/20 11:45 06/16/20 08:37 Bictegrav/Emtricit/Tenofov Ala 1 Tab Tablet PO 1 tab DAILY MANUEL Administration Buspirone HCl 10 mg 06/15/20 09:00 06/16/20 08:37 Buspirone Hcl 10 Mg Tablet PO 10 mg DAILY MANUEL Administration Folic Acid 1 mg 06/15/20 09:00 06/16/20 08:37 Folic Acid 1 Mg Tablet PO 06/18/20 08:59 1 mg DAILY MANUEL Administration Gabapentin 600 mg 06/15/20 09:00 06/16/20 08:37 Gabapentin 600 Mg Tablet PO 600 mg TID MANUEL Administration Heparin Sodium (Porcine) 5,000 unit 06/15/20 00:30 06/16/20 08:38 Heparin Sodium,Porcine 5,000 Unit/Ml Vial SUBCUT Not Given Q8H MANUEL Hydroxyzine HCl 25 mg 06/15/20 04:40 06/15/20 19:09 Hydroxyzine Hcl 25 Mg Tablet PO 25 mg Q6H PRN Administration anxiety/restlessness Sodium Chloride 1,000 mls @ 100 mls/hr 06/15/20 02:30 06/15/20 21:50 Ns IVCONT Not Given .Q10H MANUEL Clindamycin Phosphate 900 mg in 50 mls @ 50 mls/hr 06/15/20 16:00 06/15/20 23:26 Cleocin IV Not Given Q8H MANUEL Lorazepam 1 mg 06/15/20 02:11 06/16/20 05:37 Lorazepam 1 Mg Tablet PO 06/19/20 02:10 1 mg Q4H PRN Administration Breakthrough alcohol withdrawa Methadone HCl 20 mg 06/15/20 14:15 06/16/20 08:38 Methadone Hcl 1 Mg/0.1 Ml Oral.Conc PO 20 mg DAILY MANUEL Administration Multivitamins 1 tab 06/15/20 09:00 06/16/20 08:37 B-Complex With Vitamin C Tablet PO 1 tab DAILY MANUEL Administration Nicotine 21 mg 06/15/20 17:00 06/16/20 08:38 Nicotine 21 Mg Patch.Td24 TRANSDERMA 21 mg DAILY MANUEL Administration Omeprazole 20 mg 06/15/20 06:30 06/16/20 05:38 Omeprazole 20 Mg Capsule. PO 20 mg DAILY@0630 MANUEL Administration Oxycodone HCl 5 mg 06/15/20 16:52 06/16/20 05:38 Oxycodone Hcl Immed Release 5 Mg Tablet PO 5 mg Q4H PRN Administration breakthrough pain Pharmacy Consult 1 each 06/14/20 21:12 Consult Rx Vancomycin Dosing MISCELLANE DAILY PRN Consult order Pharmacy Consult 1 each 06/15/20 00:29 Consult Rx Vancomycin Dosing MISCELLANE DAILY PRN Consult order Senna 17.2 mg 06/15/20 00:28 Sennosides 8.6 Mg Tablet PO BEDTIME PRN Constipation Sodium Chloride 3 ml 06/15/20 08:00 06/16/20 09:19 0.9 % Sodium Chloride Flush 3 Ml Syringe IVFLUSH 3 ml QSHIFT MANUEL Administration Thiamine HCl 100 mg 06/15/20 09:00 06/16/20 08:37 Thiamine Hcl 100 Mg Tablet PO 06/18/20 08:59 100 mg DAILY MANUEL Administration Time Spent With Patient Time: Total time spent is greater than 50% in coordination of care (as documented) at patient's floor/unit and/or counseling patient: Time with patient: 15 - 24 minutes
[2020-06-16 10:09] LABS: Basophils Percent Auto 0.4 % (0-2); Eosinophils Absolute Auto 0.1 X10*3/uL (0.0-0.4); Eosinophils Percent Auto 1.5 % (0-4); Hematocrit 44.2 % (42-52); Hemoglobin 14.5 g/dl (14.0-18.0); Imm Gran Pct Auto 1.1 % (0.0-0.4); Lymphocytes Absolute Auto 2.2 X10*3/uL (1.2-4.9); Lymphocytes Percent Auto 23.4 % (20-40); Mean Corpuscular HGB Conc 32.8 g/dl (31.0-36.0); Mean Corpuscular Hemoglobin 31.1 pg (27.0-33.0); Mean Corpuscular Volume 94.8 fL (80-98); Mean Platelet Volume 8.9 fL (9.4-12.4); Monocytes Absolute Auto 0.8 X10*3/uL (0.1-1.2); Neutrophils Absolute Auto 6.3 X10*3/uL (2.0-8.3); Neutrophils Percent Auto 65.6 % (45-73); Platelet Count 343 X10*3/uL (160-400); Red Blood Count 4.66 X10*6/uL (4.60-5.80); Red Cell Distribution Width 14.6 % (11.0-16.0); White Blood Count 9.5 X10*3/uL (4.8-10.8)
[2020-06-16 10:31] LABS: Anion Gap 14 (12-20); Blood Urea Nitrogen 5 mg/dL (9-16); C Reactive Protein 4.01 mg/dL (< or = 0.50); Calcium 9.5 mg/dL (8.4-10.2); Carbon Dioxide 28 mmol/L (22-29); Chloride 101 mmol/L (96-108); Creatinine Clr Calc Pharmacy 132.5; Estimated Glomerular Filt Rate > 60; Glucose Random 104 mg/dL (60-115); Potassium 4.1 mmol/L (3.3-5.1); Sodium 139 mmol/L (135-145)
[2020-06-16 11:03] LABS: Erythrocyte Sedimentation Rate 28 MM/HR (0-15)
[2020-06-16 11:09] LABS: Vancomycin Trough < 3.0 mcg/mL (10.0-20.0)
--- NOTE | 2020-06-16 12:02 | MHC.CM.PN ---
Patient has been medically cleared for dc to return to the community, no services.
--- NOTE | 2020-06-16 12:45 | PM.EVENT ---
Event Note Date of Service: 06/16/20 Event Note: Addiction follow up: Patient seen briefly as he was dressed and ready to leave. Discussed continuity if care, patient reporting he only wishes to go to [facility] in [place]. Declines waiting to have referral paperwork completed and sent over. Harm reduction discussion and bus pass provided to get back to [place]
--- NOTE | 2020-06-16 14:14 | P.DS_ITS ---
DS: Providers Provider Date of Service: 06/16/20 Date of admission: 06/15/20 00:28 Primary care physician: Livia Joseph MD Consults: 06/15/20 00:38 Consult to General Surgery Routine Consulting Provider: rT Townsend Reason for consultation: ankle osteomyelitis Consult to Infectious Diseases Routine Consulting Provider: Adilia Burnham Reason for consultation: hx HIOV; Ankle osteomyelitis DS: Diagnosis Discharge Diagnosis (1) Chronic osteomyelitis: Status: Acute (2) Cellulitis: Status: Acute (3) Substance abuse: Status: Acute (4) Alcohol withdrawal: Status: Acute DS: Medications Discharge Medications Home Medications: Home Medications Medication Instructions Recorded Confirmed gabapentin 1 tab PO TID 06/15/20 06/15/20 hydroxyzine pamoate 1 cap PO QID PRN 06/15/20 06/15/20 Previous Rx's Medication Instructions Recorded [id number]-fdgvkykg-ooeydcd ala 1 tab PO DAILY #30 tab 06/16/20 [Biktarvy] linezolid 600 mg PO BID #10 tab 06/16/20 linezolid 600 mg PO BID #10 tab 06/16/20 nicotine 21 mg TRANSDERMAL DAILY #30 ea 06/16/20 DS: Summary Hospital Course Hospital Course: From history and physical by admitting hospitalist Asim Sarmiento, 06/15/20: Patient is a poor historian-most of the history obtained from the records and ER staff. 40-year-old male with a past medical history of HIV, hep C, alcohol abuse, anxiety, depression, polysubstance abuse including heroin, cocaine, history of alcohol syndrome-has right leg till ankle with a nonhealing ulcer on the stump presented to the hospital with a chief complaint of nausea and vomiting. Patient reported that over the past couple days he has been having nausea vomiting and abdominal discomfort. Denies any fever chills cough. Also mentioned that he has pain in his right leg and has noticed increased swelling and redness. Denies any numbness tingling. Patient mentions that he has been complaint with his home medications. Patient reported that his CD4 was checked couple months ago but does not remember how much. Reportedly patient recently went to [facility] but did not wanted to be admitted. Review of all other systems is negative except mentioned above ER course: ER team mentioned that patient right lower extremity x-ray showed findings consistent with osteomyelitis. Given antibiotics. Admitted for further management. The patient was admitted to the hospitalist service on broad-spectrum antibiotics, piperacillin/tazobactam and vancomycin. ID and Surgery were consulted. MRI and lab results requested from [facility]. The patient was also given a few doses of lorazepam for alcohol withdrawal. He was precontemplative regarding abstinence from substances of abuse (which in him, are cocaine, heroin, and alcohol), and was provided counseling on harm reduction. On hospital day 2, the patient insisted on signing out against medical advice despite counseling on the risks of doing so. At the same time, his primary care doctor, Dr Livia Joseph, from [facility], reached me by telephone and updated me on his medical conditions. He has a history of MRSA osteomyelitis, which, due to the patient's refusal to be admitted to the hospital, was managed with high-dose oral sulfamethoxazole- trimethoprim for 8 weeks. The MRSA is resistant to clindamycin and to tetracyclines. He subsequently had a bout of cellulitis that was treated successfully with oral sulfamethoxazole-trimethoprim. Apparently he is thought to have more of a chronic osteomyelitis with a superimposed acute cellulitis. I planned to discharge the patient routinely on a course of oral linezolid as suggested by our infectious disease implementation consultant; however, the patient eloped before I was able to provide him with a prescription and to review discharge instructions, including the importance of stopping buspirone while he is on linezolid. I reached out to Dr Joseph and transmitted the prescription to [facility] in [place] and Dr Joseph's staff will get the medication to the patient. He is to follow up with Dr Joseph as soon as possible. Time Spent with Patient Time attestation: Total time spent providing and/or coordinating discharge services: 35 Discharge coordination time: Greater than 30 minutes Physical Exam Vital Signs: Vital Signs: Last Vital Signs Temp 98.4 F 06/16/20 07:10 Pulse 92 06/16/20 07:10 Resp 18 06/16/20 07:10 BP 129/81 06/16/20 07:10 Pulse Ox 98 06/16/20 07:10 Body Mass Index 20.3 Gen: in no acute distress HEENT: sclera anicteric, moist mucus membranes Neck: supple Lungs: clear to auscultation bilaterally Heart: regular rate and rhythm, no murmurs Abd: soft, non-tender, non-distended Ext: R foot stump with quarter-sized ulcer without purulence or discharge; the R anterior loyola is erythematous and indurated without fluctuance Skin: warm/well-perfused Neuro: alert and oriented x3, no focal findings Psych: appropriate affect DS: Data Data Completed and Pending Labs on day of discharge: Laboratory Results WBC 9.5 X10*3/uL (4.8-10.8) 06/16/20 09:59 RBC 4.66 X10*6/uL (4.60-5.80) 06/16/20 09:59 Hgb 14.5 g/dl (14.0-18.0) 06/16/20 09:59 Hct 44.2 % (42-52) 06/16/20 09:59 MCV 94.8 fL (80-98) 06/16/20 09:59 MCH 31.1 pg (27.0-33.0) 06/16/20 09:59 MCHC 32.8 g/dl (31.0-36.0) 06/16/20 09:59 RDW 14.6 % (11.0-16.0) 06/16/20 09:59 Plt Count 343 X10*3/uL (160-400) 06/16/20 09:59 MPV 8.9 fL (9.4-12.4) L 06/16/20 09:59 Immature Gran % (Auto) 1.1 % (0.0-0.4) H 06/16/20 09:59 Neut % (Auto) 65.6 % (45-73) 06/16/20 09:59 Lymph % (Auto) 23.4 % (20-40) 06/16/20 09:59 Barbour % (Auto) 8.0 % (2-11) 06/16/20 09:59 Eos % (Auto) 1.5 % (0-4) 06/16/20 09:59 Baso % (Auto) 0.4 % (0-2) 06/16/20 09:59 Lymph # (Auto) 2.2 X10*3/uL (1.2-4.9) 06/16/20 09:59 Barbour # (Auto) 0.8 X10*3/uL (0.1-1.2) 06/16/20 09:59 Eos # (Auto) 0.1 X10*3/uL (0.0-0.4) 06/16/20 09:59 Baso # (Auto) 0.0 X10*3/uL (0.0-0.2) 06/16/20 09:59 Abs Immat Gran (auto) 0.10 X10*3/uL (0.00-0.03) H 06/16/20 09:59 Absolute Neuts (auto) 6.3 X10*3/uL (2.0-8.3) 06/16/20 09:59 Absolute Nucleated RBC 0.000 X10*3/uL (0.0-0.012) 06/16/20 09:59 Nucleated RBC % (auto) 0.0 /100WBC (0.0-0.2) 06/16/20 09:59 ESR 28 MM/HR (0-15) H 06/16/20 09:59 PT 12.6 SEC (10.8-13.0) 06/14/20 21:39 INR 1.1 (0.9-1.1) 06/14/20 21:39 APTT 35.1 SEC (24.1-38.0) 06/14/20 21:39 Sodium 139 mmol/L (135-145) 06/16/20 09:59 Potassium 4.1 mmol/L (3.3-5.1) 06/16/20 09:59 Chloride 101 mmol/L (96-108) 06/16/20 09:59 Carbon Dioxide 28 mmol/L (22-29) 06/16/20 09:59 Anion Gap 14 (12-20) 06/16/20 09:59 BUN 5 mg/dL (9-16) L 06/16/20 09:59 Creatinine 0.72 mg/dL (0.5-1.4) 06/16/20 09:59 Estim Creat Clear Calc 132.5 06/16/20 09:59 Estimated GFR > 60 06/16/20 09:59 Random Glucose 104 mg/dL (60-115) 06/16/20 09:59 Lactic Acid 1.0 mmol/L (0.5-2.0) 06/14/20 21:39 Calcium 9.5 mg/dL (8.4-10.2) 06/16/20 09:59 Total Bilirubin 0.7 mg/dL (0.0-1.0) 06/14/20 21:39 Direct Bilirubin 0.4 mg/dL (0.0-0.5) 06/14/20 21:39 AST 29 U/L (5-37) 06/14/20 21:39 ALT 16 U/L (0-40) 06/14/20 21:39 Alkaline Phosphatase 123 U/L (39-117) H 06/14/20 21:39 C-Reactive Protein 4.01 mg/dL (< or = 0.50) H 06/16/20 09:59 Total Protein 8.6 g/dL (6.5-8.0) H 06/14/20 21:39 Albumin 3.5 g/dL (3.5-5.0) 06/14/20 21:39 Lipase 9 U/L (8-78) 06/14/20 21:39 Vancomycin Trough < 3.0 mcg/mL (10.0-20.0) L 06/16/20 09:59 Ethyl Alcohol < 10 mg/dL 06/14/20 21:49 COVID-19 (PING) Negative (Negative) 06/14/20 21:49 COVID-19 Clin Com See Note 06/14/20 21:49 Impressions Chest X-Ray 06/14/20 21:09 IMPRESSION: Mild peribronchial thickening Ankle X-Ray 06/14/20 21:13 IMPRESSION: Question of osteomyelitis as described above. MRI may be helpful for further evaluation. Discharge Plan Discharge Patient Disposition: Home, Self-Care Discharge Diagnosis: cellulitis, chronic osteomyelitis Referrals: Livia Joseph MD [Physician] - 1 Week Discharge Medications: New nicotine 21 mg/24 hr Patch 24 Hour 21 mg transdermal DAILY Qty: 30 RF: 0 Biktarvy 50-200-25 mg Tablet 1 tab PO DAILY Qty: 30 RF: 0 linezolid 600 mg tablet 600 mg PO BID Qty: 10 RF: 0 linezolid 600 mg tablet 600 mg PO BID Qty: 10 RF: 0 Continued gabapentin 600 mg tablet 1 tab PO TID RF: 0 hydroxyzine pamoate 25 mg capsule 1 cap PO QID PRN (Reason: anxiety) RF: 0 Discontinued buspirone 10 mg tablet 1 tab PO BID RF: 0 Genvoya [phone] mg tablet 1 tab PO DAILY RF: 0 Discharge Orders: Discharge Order (Routine); Ordered 06/16/20 Ordered By: Roxanne Valdez Diet: advance to usual diet Activity on Discharge: sobriety Stand Alone Forms: Patient Portal Discharge page Care Plan Goals: treat cellulitis avoid substance abuse Health Concerns: cellulitis substance abuse Plan of Treatment: take linezolid 600 mg twice daily. STOP buspirone while you are on this medication!!! follow up with Dr Joseph from [facility] within 1 week Assessment: see above Patient Instructions: Linezolid (By mouth), Cellulitis (DC), Abuse of Alcohol (DC), Narcotic Use Disorder (DC), Opioid Use Disorder (DC) Discharge Date/Time: 06/16/20 12:06
== END 2020-06-16 12:06 | disposition home or self-care (01) | DRG 349 ==
LOC: HO.ED 06-15 00:12 → HO.EDOVER 06-15 00:50 → HO.IMC 06-15 19:03
PROVIDERS: Admitting Provider Hospitalist; Emergency Provider Internal Medicine; Visit Provider Family Medicine
DX: T87.43 Infection of amputation stump, right lower extremity (principal); L03.116 Cellulitis of left lower limb; M86.661 Other chronic osteomyelitis, right tibia and fibula; K29.20 Alcoholic gastritis without bleeding; F10.10 Alcohol abuse, uncomplicated; F17.210 Nicotine dependence, cigarettes, uncomplicated; F11.23 Opioid dependence with withdrawal; Q86.0 Fetal alcohol syndrome (dysmorphic); Z20.822 Contact with and (suspected) exposure to COVID-19; Z71.6 Tobacco abuse counseling; Z21 Asymptomatic human immunodeficiency virus [HIV] infection status; F14.10 Cocaine abuse, uncomplicated; Z79.899 Other long term (current) drug therapy
CPT/HCPCS: 36415; 71045; 73600; 80048; 80076; 80202; 80320; 83605; 83690; 85025; 85610; 85652; 85730; 86140; 87040; 87635; 96374; 96375; 99285; J2060; J2405; J2543; J2765; J3370

== ENCOUNTER 2020-08-05 11:52 | Emergency (ER) | payer MEDICAID, SELFPAY ==
[2020-08-05 12:07] VITALS: BP 132/66; PULSE 93; RESP 18; TEMP 36.6; O2SAT 100; BMI 19.1
--- NOTE | 2020-08-05 13:03 | PC.NURSE ---
SHORTLY AFTER TRIAGE PT NOTED TO HAVE WHEELED OUT OF ED AND DOWN [address] [facility] PROPERTY.
== END 2020-08-05 13:17 | disposition left against medical advice (07) ==
LOC: HO.ED 13:04
PROVIDERS: Emergency Provider Emergency Medicine; PCP Family Medicine
DX: B99.9 Unspecified infectious disease (principal)
CPT/HCPCS: 99281; 99282